=== PATIENT | male | born 1940 | race Caucasian/White ===

== ENCOUNTER 2016-10-04 12:18 | Emergency (ER) | payer MEDICARE ==
[~2016-10-04] VITALS: Ht 180.3 cm; Wt 76.0 kg
[~2016-10-04 12:18] MED LIST: AMLO5TAB22 PO; ASPI1TAB7 PO; BENA1TAB44 PO; CALC-137 PO; CENTCHW3 PO; FLUT1SPR9 EACH NARE; GLUC1TAB24 PO; LIPI20TA PO; LORA10TA PO; MELA3TAB PO; MELO7.5 PO; METO50CR PO; NAPR220T95 PO; OMEG5CAP PO
[2016-10-04 12:46] VITALS: BP 135/85; PULSE 72; RESP 18; TEMP 99.3; O2SAT 99
--- NOTE | 2016-10-04 12:55 | PD ---
HPI Chief Complaint: Altered Mental Status Time Seen by Provider: 12:27 Travel History International Travel<30 days: No Contact w/Intl Traveler<30days: No Traveled to known affect area: No History of Present Illness HPI 75-year-old male came to the emergency room with history of being aggressive that his RETIREMENT. Patient has history of dementia but he has been more aggressive than usual today and they sent him to be evaluated. Here patient is not helpful a cooperative. It's difficult to get much history out of him. Vital signs are stable otherwise. [facility] Past Medical History Narrative Medical List of his past medical, surgical, social and family history is reviewed from the nursing note. High Cholesterol: Yes Dementia: Yes Diminished Hearing: No Hypertension: Yes Past Surgical History Cardiac Surgery: Yes (L ENDARTERECTOMY ) Social History Alcohol Use: No Tobacco Use: No Substance Use: No Allergies-Medications (Allergen,Severity, Reaction): Coded Allergies: bee venom protein (honey bee) (Verified Allergy, Intermediate, 10/04/16) bacitracin (Unverified Allergy, Unknown, 10/04/16) gramicidin D (Unverified Allergy, Unknown, 10/04/16) neomycin (Unverified Allergy, Unknown, 10/04/16) polymyxin B (Unverified Allergy, Unknown, 10/04/16) Uncoded Allergies: TOLECTIN (Allergy, Intermediate, 10/04/16) Comments List of his allergies reviewed from the nursing note. Reported Meds & Prescriptions Reported Meds & Active Scripts Active Macrobid (Nitrofurantoin Monoh/Nitrofur Macro) 100 Mg Cap 100 Mg PO BID Reported Risperidone 0.25 Mg Tab 0.25 Mg PO DAILY Dexamethasone 4 Mg Tab 4 Mg PO DIRECTED Tramadol (Tramadol HCl) 50 Mg Tab 50 Mg PO Q6H PRN Lorazepam 0.5 Mg Tab 0.5 Mg PO BID PRN Namenda (Memantine) 10 Mg Tab 10 Mg PO BID Lasix (Furosemide) 20 Mg Tab 20 Mg PO DAILY Flomax (Tamsulosin HCl) 0.4 Mg Cap 0.4 Mg PO HS Aspirin Low Dose (Aspirin) 81 Mg Chew 81 Mg CHEW DAILY Docusate Sodium 100 Mg Cap 100 Mg PO DAILY Dyazide (Triamterene-Hydrochlorothiazide) 37.5-25 Mg Cap 1 Cap PO DAILY Norvasc (Amlodipine Besylate) 10 Mg Tab 10 Mg PO DAILY Metoprolol Tartrate 100 Mg Tab 100 Mg PO BID Lexapro (Escitalopram Oxalate) 10 Mg Tab 10 Mg PO DAILY Donepezil 5 Mg Tab 5 Mg PO HS Narrative Medication List of his home medications reviewed from the nursing note. Review of Systems Except as stated in HPI: all other systems reviewed are Neg Physical Exam Narrative GENERAL: Awake, alert, dementia SKIN: Focused skin assessment warm/dry. HEAD: Atraumatic. Normocephalic. EYES: Pupils equal and round. No scleral icterus. No injection or drainage. ENT: No nasal bleeding or discharge. Mucous membranes pink and moist. NECK: Trachea midline. No JVD. CARDIOVASCULAR: Regular rate and rhythm. No murmur appreciated. RESPIRATORY: No accessory muscle use. Clear to auscultation. Breath sounds equal bilaterally. GASTROINTESTINAL: Abdomen soft, non-tender, nondistended. Hepatic and splenic margins not palpable. MUSCULOSKELETAL: No obvious deformities. No clubbing. No cyanosis. No edema. NEUROLOGICAL: Awake and alert. Dementia. Significant dementia No obvious cranial nerve deficits. Motor grossly within normal limits. Normal speech. PSYCHIATRIC: Appropriate mood and affect; insight and judgment normal. Data Data Last Documented VS Vital Signs Date Time Temp Pulse Resp B/P (MAP) Pulse Ox O2 Delivery O2 Flow Rate FiO2 10/04/16 17:05 10/04/16 17:03 69 18 97 Room Air 10/04/16 12:46 99.3 Orders Orders Electrocardiogram (10/04/16 13:01) Basic Metabolic Panel (Bmp) (10/04/16 13:01) Complete Blood Count With Diff (10/04/16 13:01) Urinalysis - C+S If Indicated (10/04/16 13:01) Ct Brain W/O Iv Contrast(Rout) (10/04/16 13:01) Blood Glucose (10/04/16 13:01) Ecg Monitoring (10/04/16 13:01) Iv Access Insert/Monitor (10/04/16 13:01) Oximetry (10/04/16 13:01) Sodium Chloride 0.9% Flush (Ns Flush) (10/04/16 13:15) Sodium Chlorid 0.9% 500 Ml Inj (Ns 500 M (10/04/16 13:15) Haloperidol Inj (Haldol Inj) (10/04/16 13:45) Lorazepam Inj (Ativan Inj) (10/04/16 13:45) Urine Culture (10/04/16 13:36) Sodium Chlorid 0.9% 500 Ml Inj (Ns 500 M (10/04/16 14:30) Ceftriaxone Inj (Rocephin Inj) (10/04/16 14:30) Labs Laboratory Tests Test 10/04/16 13:05 10/04/16 13:36 White Blood Count 13.0 TH/MM3 Red Blood Count 4.59 MIL/MM3 Hemoglobin 13.9 GM/DL Hematocrit 40.8 % Mean Corpuscular Volume 88.8 FL Mean Corpuscular Hemoglobin 30.3 PG Mean Corpuscular Hemoglobin Concent 34.2 % Red Cell Distribution Width 15.4 % Platelet Count 239 TH/MM3 Mean Platelet Volume 8.8 FL Neutrophils (%) (Auto) 86.9 % Lymphocytes (%) (Auto) 5.0 % Monocytes (%) (Auto) 7.7 % Eosinophils (%) (Auto) 0.1 % Basophils (%) (Auto) 0.3 % Neutrophils # (Auto) 11.3 TH/MM3 Lymphocytes # (Auto) 0.7 TH/MM3 Monocytes # (Auto) 1.0 TH/MM3 Eosinophils # (Auto) 0.0 TH/MM3 Basophils # (Auto) 0.0 TH/MM3 CBC Comment DIFF FINAL Differential Comment Blood Urea Nitrogen 21 MG/DL Creatinine 1.52 MG/DL Random Glucose 185 MG/DL Calcium Level 9.3 MG/DL Sodium Level 141 MEQ/L Potassium Level 5.0 MEQ/L Chloride Level 104 MEQ/L Carbon Dioxide Level 24.5 MEQ/L Anion Gap 13 MEQ/L Estimat Glomerular Filtration Rate 45 ML/MIN Urine Color YELLOW Urine Turbidity CLEAR Urine pH 6.5 Urine Specific [place] 1.011 Urine Protein 30 mg/dL Urine Glucose (UA) NEG mg/dL Urine Ketones NEG mg/dL Urine Occult Blood TRACE Urine Nitrite NEG Urine Bilirubin NEG Urine Urobilinogen LESS THAN 2.0 MG/DL Urine Leukocyte Esterase LARGE Urine RBC 8 /hpf Urine WBC 15 /hpf Urine Bacteria RARE /hpf Urine Hyaline Casts 29 /lpf Urine Mucus FEW /lpf Microscopic Urinalysis Comment CATH-CULTURE IND MDM Medical Decision Making Medical Screen Exam Complete: Yes Emergency Medical Condition: Yes Medical Record Reviewed: Yes Interpretation(s) Twelve-lead EKG was reviewed by me. Normal sinus rhythm, normal axis, nonspecific ST-T wave changes. Heart rate of 74 bpm. Differential Diagnosis Dementia, psychosis, UTI, electrolyte abnormality, intracranial bleed Narrative Course 3:20 PM blood test results of back and within acceptable limit. Patient has slight leukocytosis and has a UTI. I've given him a dose of Rocephin. Awaiting for the head CT to be done and resulted. CT is negative patient will be medically cleared for psych screen. 3:26 PM patient is medically cleared. Would require psych eval. 3:31 PM patient's medical care administrator is in the room and they look more history was obtained. Patient has recently been moved to a new or facility and the staff is not used to his behavior. As per her patient's behavior is pretty close to his baseline. At this point given this information ER has very little to contribute besides treating his UTI which could upon treatment make his behavioral issues subside. However my recommendation to the RETIREMENT would need to talk to his primary care and consider a higher care facility with the dementia unit possibly. I've canceled the psych screen. I'll discharge him home. Procedures EKG Prior to Arrival: No Diagnosis Primary Impression: Dementia Qualified Codes: F03.91 - Unspecified dementia with behavioral disturbance Additional Impressions: UTI (urinary tract infection) Qualified Codes: N39.0 - Urinary tract infection, site not specified Psychosis Qualified Codes: F28 - Other psychotic disorder not due to a substance or known physiological condition Referrals: Primary Care Physician 2 days Additional Instructions: Please return to the ER if the condition worsens. Patient needs to be evaluated by his primary care. Please administer the medication that has been prescribed to him. Consider after talking to the primary care in moving him to a higher care facility with dementia unit. Med/Other Pt SpecificInfo: Prescription(s) given Scripts Nitrofurantoin Monohydrate Macrocrystals (Macrobid) 100 Mg Cap 100 MG PO BID for Infection, #20 CAP 0 Refills Prov: Asia Bourne MD 10/04/16 Disposition: 01 DISCHARGE HOME Condition: Stable Asia Bourne MD Oct 04, 2016 12:55
[2016-10-04] MEDS ORDERED: ASPI81CH37 CHEW (12:58)
[2016-10-04] MEDS ORDERED: METO100T PO (12:58)
[2016-10-04] MEDS ORDERED: DONE5TAB7 PO (12:58)
[2016-10-04] MEDS ORDERED: LORA-373 PO (12:58)
[2016-10-04] MEDS ORDERED: LEXA10TA PO (12:58)
[2016-10-04] MEDS ORDERED: DOCU100C PO (12:58)
[2016-10-04] MEDS ORDERED: DYAZ37.5 PO (12:58)
[2016-10-04] MEDS ORDERED: DEXA4TAB PO (12:58)
[2016-10-04] MEDS ORDERED: RISP0.252 PO (12:58)
[2016-10-04] MEDS ORDERED: NAME10TA PO (12:58)
[2016-10-04] MEDS ORDERED: AMLO10 PO (12:58)
[2016-10-04] MEDS ORDERED: TRAM50TA PO (12:58)
[2016-10-04] MEDS ORDERED: TAMS5CAP PO (12:58)
[2016-10-04] MEDS ORDERED: FURO1TAB62 PO (12:58)
[2016-10-04] MEDS ORDERED: SODIUM CHLORIDE 0.9% FLUSH 5 ML FLUSH IV FLUSH PRN (13:15)
[2016-10-04] MEDS ORDERED: SODIUM CHLORID 0.9% 500 ML INJ 500 ML IV ONE ×2 (13:15→14:30)
[2016-10-04 13:28] LABS: AUTOMATED NEUTROPHIL # 11.3 TH/MM3 (1.8-7.7); BASOPHIL % 0.3 % (0.0-2.0); EOSINOPHIL % 0.1 % (0.0-4.0); HEMATOCRIT 40.8 % (39.0-51.0); HEMO FLAGS DIFF FINAL; LYMPHOCYTE # 0.7 TH/MM3 (1.0-4.8); MEAN CELL VOLUME 88.8 FL (80.0-100.0); MEAN CORPUSCULAR HEMOGLOBIN 30.3 PG (27.0-34.0); MEAN CORPUSCULAR HGB CONC 34.2 % (32.0-36.0); MONO % 7.7 % (0.0-8.0); NEUT % 86.9 % (16.0-70.0); PLATELET COUNT 239 TH/MM3 (150-450); RED BLOOD COUNT 4.59 MIL/MM3 (4.50-5.90); RED CELL DISTRIBUTION WIDTH 15.4 % (11.6-17.2)
[2016-10-04 13:44] LABS: BICARBONATE 24.5 MEQ/L (21.0-32.0)
[2016-10-04] MEDS ORDERED: HALOPERIDOL LACTATE 5 MG/ML AMP IM ONE (13:45)
[2016-10-04] MEDS ORDERED: LORazepam 2 MG/ML VIAL IM ONE (13:45)
[2016-10-04 14:09] LABS: BACTERIA, URINE RARE /hpf; BLOOD, URINE TRACE (NEG); GLUCOSE,URINE NEG (NEG); HYALINE CAST, URINE 29 /lpf (RARE); KETONE, URINE NEG (NEG); MUCUS URINE FEW /lpf (OCC); NITRITE,URINE NEG (NEG); PH, URINE 6.5 (5.0-8.5); URINE COLOR YELLOW (YELLW/STRAW)
[2016-10-04 14:10] LABS: COMMENT (UR) CATH-CULTURE IND; CULTURE IF INDICATED CATH CULTURE IND
[2016-10-04] MEDS ORDERED: cefTRIAXone INJ 1,000 MG in SODIUM CHLORIDE 0.9% INJ 100 ML IV ONE (14:30)
--- NOTE | 2016-10-04 15:21 | RADRPT ---
EXAM DATE/TIME: 10/04/2016 15:00 [facility] COMPARISON: CT BRAIN W/O CONTRAST, December 03, 2015, 16:30. INDICATIONS : Altered mental status. RADIATION DOSE: 56.35 CTDIvol (mGy) ; Patient motion MEDICAL HISTORY : Dementia. Hypertension. SURGICAL HISTORY : None. ENCOUNTER: Initial ACUITY: 1 day PAIN SCALE: 0/10 LOCATION: cranial TECHNIQUE: Multiple contiguous axial images were obtained of the head. Using automated exposure control and adj ustment of the mA and/or kV according to patient size, radiation dose was kept as low as reasonably a chievable to obtain optimal diagnostic quality images. DICOM format image data is available electro nically for review and comparison. FINDINGS: CEREBRUM: Scattered areas of low attenuation throughout the white matter. The ventricles are normal for age. N o evidence of midline shift, mass lesion, hemorrhage or acute infarction. No extra-axial fluid colle ctions are seen. POSTERIOR FOSSA: The brainstem is intact. Left cerebellar infarct is unchanged. The 4th ventricle is midline. The ce rebellopontine angle is unremarkable. EXTRACRANIAL: The visualized portion of the orbits is intact. SKULL: The calvaria is intact. No evidence of skull fracture. CONCLUSION: 1. No acute intracranial abnormality. 2. Clinical ischemic small vessel vasculopathy. 3. Remote left cerebellar infarct. Ruben Carrion MD on October 04, 2016 at 15:16 Board Certified Radiologist. This report was verified electronically.
[2016-10-04 15:27] VITALS: BP 95/51; PULSE 58; RESP 18; O2SAT 97
[2016-10-04] MEDS ORDERED: MACR100C2 PO (15:31)
[2016-10-04 17:03] VITALS: BP 144/70; PULSE 69; RESP 18; O2SAT 97
--- NOTE | 2016-10-05 13:43 | EKG ---
Date Performed: 10/04/2016 Time Performed: 13:26:08 PTAGE: 75 years EKG: Sinus rhythm POSSIBLE RIGHT VENTRICULAR CONDUCTION DELAY NONSPECIFIC T-WAVE ABNORMALITY BORDERLINE ECG Compared t o prior tracing no significant change PREVIOUS TRACING DOCTOR: Jeri Schaeffer Interpretating Date/Time 10/05/2016 13:39:36
== END 2016-10-04 17:36 | disposition home or self-care (01) ==
LOC: NEPC 12:18
DX: F03.91 Unspecified dementia, unspecified severity, with behavioral disturbance (principal); N39.0 Urinary tract infection, site not specified; F29 Unspecified psychosis not due to a substance or known physiological condition; I10 Essential (primary) hypertension; B95.7 Other staphylococcus as the cause of diseases classified elsewhere
CPT/HCPCS: 70450; 80048; 81001; 85025; 87086; 93005; 96361; 96365; 96366; 96372; 99285; J0696; J1630; J2060; J7040

== ENCOUNTER 2017-04-20 07:39 | Emergency (ER) | payer MEDICARE ==
[~2017-04-20] VITALS: Ht 172.7 cm; Wt 65.0 kg
[~2017-04-20 07:39] MED LIST changes: +AMLO10 PO; -AMLO5TAB22 PO; -ASPI1TAB7 PO; +ASPI81CH6 CHEW; -BENA1TAB44 PO; -CALC-137 PO; -CENTCHW3 PO; +DEXA4TAB PO; +DOCU100C15 PO; +DONE5TAB7 PO; +DYAZ37.5 PO; -FLUT1SPR9 EACH NARE; +FURO1TAB62 PO; -GLUC1TAB24 PO; +LEXA10TA PO; -LIPI20TA PO; +LORA0.5T PO; -LORA10TA PO; +MACR100C2 PO; -MELA3TAB PO; -MELO7.5 PO; +METO100T PO; -METO50CR PO; +NAME10TA PO; -NAPR220T95 PO; -OMEG5CAP PO; +RISP0.252 PO; +TAMS5CAP PO; +TRAM50TA PO
[2017-04-20 07:46] VITALS: BP 163/74; PULSE 61; RESP 15; TEMP 98.3; TEMP 98.7; O2SAT 99
[2017-04-20] MEDS ORDERED: LEXA10TA PO (07:56)
[2017-04-20] MEDS ORDERED: TAMS5CAP PO (07:56)
[2017-04-20] MEDS ORDERED: AMLO10 PO (07:56)
[2017-04-20] MEDS ORDERED: COLA100C5 PO (07:56)
[2017-04-20] MEDS ORDERED: NAME10TA PO (07:56)
[2017-04-20] MEDS ORDERED: ASPI-516 CHEW (07:56)
[2017-04-20] MEDS ORDERED: ALPR.25 PO (07:56)
[2017-04-20] MEDS ORDERED: SODIUM CHLORIDE 0.9% FLUSH 10 ML FLUSH IV FLUSH PRN (08:45)
[2017-04-20] MEDS ORDERED: SODIUM CHLORID 0.9% 500 ML INJ 500 ML IV ONE ×2 (08:45→10:30)
[2017-04-20 08:53] LABS: AUTOMATED NEUTROPHIL # 3.9 TH/MM3 (1.8-7.7); BASOPHIL % 0.8 % (0.0-2.0); EOSINOPHIL # 0.1 TH/MM3 (0-0.4); HEMATOCRIT 31.7 % (39.0-51.0); LYMPH % 15.1 % (9.0-44.0); LYMPHOCYTE # 0.8 TH/MM3 (1.0-4.8); MEAN CELL VOLUME 84.1 FL (80.0-100.0); MEAN CORPUSCULAR HEMOGLOBIN 29.1 PG (27.0-34.0); MEAN CORPUSCULAR HGB CONC 34.7 % (32.0-36.0); MEAN PLATELET VOLUME 8.8 FL (7.0-11.0); MONO % 10.8 % (0.0-8.0); MONOCYTE # 0.6 TH/MM3 (0-0.9); NEUT % 72.3 % (16.0-70.0); PLATELET COUNT 216 TH/MM3 (150-450); RED BLOOD COUNT 3.77 MIL/MM3 (4.50-5.90); RED CELL DISTRIBUTION WIDTH 15.6 % (11.6-17.2); WHITE BLOOD COUNT 5.4 TH/MM3 (4.0-11.0)
--- NOTE | 2017-04-20 09:02 | PD ---
HPI Chief Complaint: Altered Mental Status Time Seen by Provider: 08:31 Travel History International Travel<30 days: No Contact w/Intl Traveler<30days: No Traveled to known affect area: No History of Present Illness HPI This is a 76-year-old male with a history of dementia, hyperlipidemia, hypertension, depression, who [facility] with initial report of near syncope versus syncope. According to the paramedics they state they got a call that the patient nearly passed out while they were ambulating him. Paramedics report that the staff also stated that he is normally talkative and that he is not talking like he does on a normal basis. The patient has a photonics engineering technologist that Gaston that knows him very well. She reports that he is not a talkative person and that he is at his baseline. She states that he has never been talkative and is not sure why they stated that he was. The patient is unable to give any history. He will occasionally answer yes no question otherwise is not eliciting any further history. There were no reported fevers, chills. There is no reported decreased blood pressure per paramedics. There are no other complaints. PFSH Past Medical History Anxiety: Yes Depression: Yes Cancer: Yes (SKIN) High Cholesterol: Yes Dementia: Yes Diminished Hearing: No Hypertension: Yes Tetanus Vaccination: Unknown Influenza Vaccination: No Past Surgical History Cardiac Surgery: Yes (L,R ENDARTERECTOMY ) Social History Alcohol Use: No Tobacco Use: No Substance Use: No Allergies-Medications (Allergen,Severity, Reaction): Coded Allergies: bee venom protein (honey bee) (Verified Allergy, Intermediate, 04/20/17) bacitracin (Unverified Allergy, Unknown, 04/20/17) gramicidin D (Unverified Allergy, Unknown, 04/20/17) neomycin (Unverified Allergy, Unknown, 04/20/17) polymyxin B (Unverified Allergy, Unknown, 04/20/17) Uncoded Allergies: TOLECTIN (Allergy, Intermediate, 10/04/16) Reported Meds & Prescriptions Reported Meds & Active Scripts Active Levofloxacin 750 Mg Tablet 750 Mg PO DAILY 4 Days Reported Norvasc (Amlodipine Besylate) 10 Mg Tab 10 Mg PO DAILY Flomax (Tamsulosin HCl) 0.4 Mg Cap 0.4 Mg PO HS Namenda (Memantine) 10 Mg Tab 10 Mg PO BID Xanax (Alprazolam) 0.25 Mg Tab 0.25 Mg PO BID PRN Lexapro (Escitalopram Oxalate) 10 Mg Tab 10 Mg PO DAILY Colace (Docusate Sodium) 100 Mg Capsule 100 Mg PO HS Aspirin 81 Mg Chew 81 Mg CHEW DAILY Review of Systems ROS Limitations: Clinical Condition (Unable to obtain secondary to patient's history of dementia and minimal verbal status.), Altered Mental Status Except as stated in HPI: all other systems reviewed are Neg Physical Exam Narrative GENERAL: Well-developed well-nourished male in no acute respiratory distress. SKIN: Focused skin assessment warm/dry. HEAD: Atraumatic. Normocephalic. EYES: . No scleral icterus. No injection or drainage. ENT: No nasal bleeding or discharge. Mucous membranes pink and slightly dry. NECK: Trachea midline. Supple. CARDIOVASCULAR: Regular rate and rhythm. No murmur appreciated. RESPIRATORY: No accessory muscle use. Clear to auscultation. Breath sounds equal bilaterally. GASTROINTESTINAL: Abdomen soft, non-tender, nondistended. Hepatic and splenic margins not palpable. MUSCULOSKELETAL: No obvious deformities. No clubbing. No cyanosis. No edema. NEUROLOGICAL: Awake and uncooperative. No obvious cranial nerve deficits. Motor grossly within normal limits. Minimal speech. Occasional yes or no answer. Data Data Last Documented VS Vital Signs Date Time Temp Pulse Resp B/P (MAP) Pulse Ox O2 Delivery O2 Flow Rate FiO2 04/20/17 12:00 74 15 155/65 (95) 100 Room Air 04/20/17 07:46 98.7 Orders Orders Complete Blood Count With Diff (04/20/17 08:31) Comprehensive Metabolic Panel (04/20/17 08:31) Creatine Kinase (Cpk) (04/20/17 08:31) Troponin I (04/20/17 08:31) Urinalysis - C+S If Indicated (04/20/17 08:31) Chest, Single Ap (04/20/17 08:31) Blood Glucose (04/20/17 08:31) Ecg Monitoring (04/20/17 08:31) Iv Access Insert/Monitor (04/20/17 08:31) Oximetry (04/20/17 08:31) Sodium Chloride 0.9% Flush (Ns Flush) (04/20/17 08:45) Sodium Chlorid 0.9% 500 Ml Inj (Ns 500 M (04/20/17 08:45) Urine Culture (04/20/17 09:05) Levofloxacin 750 Mg Premix Inj (Levaquin (04/20/17 10:30) Sodium Chlorid 0.9% 500 Ml Inj (Ns 500 M (04/20/17 10:30) Electrocardiogram (04/20/17 07:48) Lorazepam Inj (Ativan Inj) (04/20/17 12:15) Ed Discharge Order (04/20/17 12:23) Labs Laboratory Tests Test 04/20/17 08:30 04/20/17 09:05 White Blood Count 5.4 TH/MM3 Red Blood Count 3.77 MIL/MM3 Hemoglobin 11.0 GM/DL Hematocrit 31.7 % Mean Corpuscular Volume 84.1 FL Mean Corpuscular Hemoglobin 29.1 PG Mean Corpuscular Hemoglobin Concent 34.7 % Red Cell Distribution Width 15.6 % Platelet Count 216 TH/MM3 Mean Platelet Volume 8.8 FL Neutrophils (%) (Auto) 72.3 % Lymphocytes (%) (Auto) 15.1 % Monocytes (%) (Auto) 10.8 % Eosinophils (%) (Auto) 1.0 % Basophils (%) (Auto) 0.8 % Neutrophils # (Auto) 3.9 TH/MM3 Lymphocytes # (Auto) 0.8 TH/MM3 Monocytes # (Auto) 0.6 TH/MM3 Eosinophils # (Auto) 0.1 TH/MM3 Basophils # (Auto) 0.0 TH/MM3 CBC Comment DIFF FINAL Differential Comment Blood Urea Nitrogen 27 MG/DL Creatinine 1.22 MG/DL Random Glucose 113 MG/DL Total Protein 6.1 GM/DL Albumin 3.2 GM/DL Calcium Level 8.7 MG/DL Alkaline Phosphatase 80 U/L Aspartate Amino Transf (AST/SGOT) 14 U/L Alanine Aminotransferase (ALT/SGPT) 12 U/L Total Bilirubin 0.5 MG/DL Sodium Level 144 MEQ/L Potassium Level 3.9 MEQ/L Chloride Level 108 MEQ/L Carbon Dioxide Level 26.8 MEQ/L Anion Gap 9 MEQ/L Estimat Glomerular Filtration Rate 57 ML/MIN Total Creatine Kinase 37 U/L Troponin I LESS THAN 0.02 NG/ML Urine Color YELLOW Urine Turbidity HAZY Urine pH 7.0 Urine Specific [place] 1.016 Urine Protein TRACE mg/dL Urine Glucose (UA) NEG mg/dL Urine Ketones NEG mg/dL Urine Occult Blood NEG Urine Nitrite NEG Urine Bilirubin NEG Urine Urobilinogen LESS THAN 2.0 MG/DL Urine Leukocyte Esterase LARGE Urine RBC 4 /hpf Urine WBC 105 /hpf Urine Amorphous Sediment RARE Urine Bacteria MOD /hpf Urine Mucus FEW /lpf Microscopic Urinalysis Comment CATH-CULTURE IND MDM Medical Decision Making Medical Screen Exam Complete: Yes Emergency Medical Condition: Yes Differential Diagnosis UTI versus pneumonia versus dehydration versus near syncope Narrative Course Cystitis 76-year-old male [facility] for what was recorded originally as near syncope. Patient also was reportedly less verbal according to the [facility]. Caregiver at the bedside states that this is his normal state. The patient was noted to have a UTI. He has had frequent UTIs in the past. He is also noted to be dehydrated. He has been given 2 500 cc boluses of fluid. He is also been given 750 mg of Levaquin IV. He will be [facility] to the [facility]. Diagnosis Primary Impression: Cystitis Additional Impressions: Dehydration History of dementia Scripts Levofloxacin (Levofloxacin) 750 Mg Tablet 750 MG PO DAILY for Infection for 4 Days, #4 TAB 0 Refills Prov: Tom Do MD 04/20/17 Disposition: 01 DISCHARGE HOME Condition: Stable Tom Do MD Apr 20, 2017 09:02
--- NOTE | 2017-04-20 09:03 | RADRPT ---
EXAM DATE/TIME: 04/20/2017 08:42 [facility] COMPARISON: CHEST SINGLE AP, December 03, 2015, 15:00. INDICATIONS : Syncopal episode today. MEDICAL HISTORY : Dementia. Hypertension. SURGICAL HISTORY : None. ENCOUNTER: Initial ACUITY: 1 day PAIN SCORE: Non-responsive. LOCATION: Bilateral chest FINDINGS: A single view of the chest demonstrates the lungs to be hyperinflated without evidence of mass, infil trate or effusion. The cardiomediastinal contours are unremarkable. Osseous structures are intact. CONCLUSION: 1. COPD 2. No evidence of acute process. Rigoberto Sandoval MD on April 20, 2017 at 9:01 Board Certified Radiologist. This report was verified electronically.
[2017-04-20 09:07] LABS: ALBUMIN 3.2 GM/DL (3.4-5.0); AST (GOT) 14 U/L (15-37); BICARBONATE 26.8 MEQ/L (21.0-32.0); BLOOD UREA NITROGEN 27 MG/DL (7-18); CALCIUM 8.7 MG/DL (8.5-10.1); CHLORIDE 108 MEQ/L (98-107); CREATININE 1.22 MG/DL (0.60-1.30); GLOMERULAR FILTRATION RATE 57 ML/MIN (>89); GLUCOSE,RANDOM 113 MG/DL (74-106); SODIUM (NA) 144 MEQ/L (136-145)
[2017-04-20 09:08] LABS: ALT (GPT) 12 U/L (12-78)
[2017-04-20 09:12] LABS: ALKALINE PHOSPHATASE 80 U/L (45-117); TOTAL BILIRUBIN ADULT 0.5 MG/DL (0.2-1.0); TOTAL PROTEIN 6.1 GM/DL (6.4-8.2); TROPONIN I LESS THAN 0.02 NG/ML (0.02-0.05)
[2017-04-20 09:29] LABS: AMORPHOUS SEDIMENT, URINE RARE; BACTERIA, URINE MOD /hpf; BILIRUBIN, URINE NEG (NEG); BLOOD, URINE NEG (NEG); GLUCOSE,URINE NEG (NEG); KETONE, URINE NEG (NEG); MUCUS URINE FEW /lpf (OCC); NITRITE,URINE NEG (NEG); URINE COLOR YELLOW (YELLW/STRAW); URINE LEUKOCYTE ESTERASE LARGE (NEG)
[2017-04-20] MEDS ORDERED: LEVOFLOXACIN 750 MG PREMIX INJ 150 ML IV ONE (10:30)
[2017-04-20 10:45] VITALS: BP 150/64; PULSE 68; RESP 15; O2SAT 100
[2017-04-20] MEDS ORDERED: LEVO750T3 PO (11:18)
[2017-04-20 12:00] VITALS: BP 155/65; PULSE 74; RESP 15; O2SAT 100
[2017-04-20] MEDS ORDERED: LORazepam 2 MG/ML VIAL IV PUSH ONE (12:15)
--- NOTE | 2017-04-20 13:44 | EKG ---
Date Performed: 04/20/2017 Time Performed: 07:48:33 PTAGE: 76 years EKG: SINUS BRADYCARDIA PREVIOUS TRACING : 10/04/2016 13.26 DOCTOR: Kodi Mckeon Interpretating Date/Time 04/20/2017 13:44:07
== END 2017-04-20 12:38 | disposition home or self-care (01) ==
LOC: NEPC 07:39
DX: N30.90 Cystitis, unspecified without hematuria (principal); B95.7 Other staphylococcus as the cause of diseases classified elsewhere; E86.0 Dehydration; F03.90 Unspecified dementia, unspecified severity, without behavioral disturbance, psychotic disturbance, mood disturbance, and anxiety; R00.1 Bradycardia, unspecified; I10 Essential (primary) hypertension; E78.00 Pure hypercholesterolemia, unspecified; E78.5 Hyperlipidemia, unspecified; F32.9 Major depressive disorder, single episode, unspecified; F41.9 Anxiety disorder, unspecified; Z85.828 Personal history of other malignant neoplasm of skin; Z88.8 Allergy status to other drugs, medicaments and biological substances; Z79.82 Long term (current) use of aspirin; Z79.899 Other long term (current) drug therapy
CPT/HCPCS: 71045; 80053; 81001; 82550; 84484; 85025; 87086; 93005; 96361; 96365; 96375; 99285; J1956; J2060; J7040